=== PATIENT | female | born 1960 | race Caucasian/White ===

== ENCOUNTER 2018-07-21 14:45 | Outpatient (CLI) | payer OTHER | END 2018-07-21 14:46 | disposition home or self-care (01) | LOC: DTY/OP 14:45 | PROVIDERS: ATTEND Nurse Practitioner | DX: E11.9 Type 2 diabetes mellitus without complications (principal) | CPT/HCPCS: 97802 ==

== ENCOUNTER 2018-08-04 13:22 | Outpatient (CLI) | payer OTHER ==
--- NOTE | 2018-08-11 14:02 | MMO ---
SCREENING MAMMOGRAPHY: 08/11/2018 HISTORY: Screening. COMPARISON: 10/26/2015 and 02/12/2013 FINDINGS: The patient's mammogram is interpreted with the assistance of computer aided detection. Scattered fibroglandular density is present. Benign calcification bilaterally. No dominant mass or architectural distortion. No concerning microcalcification. IMPRESSION: BI-RADS category 1-Negative. Recommend annual screening mammography. POS: [facility]
== END 2018-08-04 13:23 | disposition home or self-care (01) ==
LOC: SCSMAMMO 13:22
PROVIDERS: ATTEND Nurse Practitioner
DX: Z12.31 Encounter for screening mammogram for malignant neoplasm of breast (principal)
CPT/HCPCS: 77067